=== PATIENT | female | born 1980 | race Caucasian/White ===

== ENCOUNTER 2019-10-01 08:45 | Observation (INO) | payer OTHER, SELFPAY ==
[2019-10-01] VITALS (11 sets, daily range): BP systolic 100–131; BP diastolic 60–94; PULSE 65–82; RESP 16–25; TEMP 36.6–37.2; O2SAT 96–100; BMI 25.7
--- NOTE | 2019-10-01 08:56 | ED.DCSUM_ITS ---
- ER Visit Summary Date of Service: 10/01/19 Chief Complaint: [Abdominal pain] History of Present Illness: The patient is a 39 F [presents to the emergency department complaint of abdominal pain started about a week ago. Patient states that she has had relatively continuous pain but was more mild until around 4 AM this morning when she states it became more severe. Patient did vomit x1. She denies any fever. Patient has had some dysuria and frequency and some urinary incontinence. Patient has history of a brain tumor with resection. She has had her appendix removed and she has had history of diverticulitis in the past. Patient currently rates her pain a 6 or 7 out of 10. She describes it as epigastric. Denies any diarrhea. She denies any blood in her stool or black tarry stools.] Physical Examination: [HEENT-PERRLA, EOMI. Cranial nerves II through XII grossly intact. TMs clear. Mucous membranes moist. No adenopathy. Cardiovascular-regular rate and rhythm without murmur or ectopy Lungs-clear to auscultation, chest wall stable without crepitus or subcu emp hysema Abdomen-normoactive bowel sounds, soft. Patient has some diffuse tenderness in the epigastric region. Some mild guarding. There is no rebound, rigidity, or perineal signs Extremities-intact ?4, normal range of motion, normal pulses, atraumatic] Test Results: [CBC with differential white count of 11.0, hemoglobin 13, hematocrit 39, platelets 247. Chemistries unremarkable. Total bilirubin was 2.0 and alk phos was 400, ALT 706, AST 380, lipase was 4 679. Ultrasound of the gallbladder showed Pennie lithiasis with a dilated common bile duct 19 mm without sonographic evidence of cholecystitis.] Emergency Department Course and Treatment: [Patient had an IV line established and she was given morphine and Zofran for pain. Patient will be discussed with general surgeon on-call Dr. Butler. Patient will be evaluated by surgeon. ] Treatment Plan: [Admit] Disposition: [Admit] Impression: [Abdominal pain Cholelithiasis with suspicion for choledocholithiasis Gallstone pancreatitis] This note was generated with [employer] software. It may contain incorrect words, spelling, and punctuation that were not noted in review of the chart prior to signing ED Disposition - Plan for ED Patient: Referrals: Care Physician,Lisa Primary [NON-STAFF] -
[2019-10-01 09:43] LABS: ALB/GLOB Ratio 0.7 RATIO (0.9-2.4); AST(SGOT) 380 U/L (15-37); Alanine Aminotransfer ALT/SGPT 706 U/L (13-56); Albumin, Serum 3.7 g/dL (3.2-5.0); Alkaline Phosphatase 400 U/L (45-117); Anion Gap 7 (5-15); BUN 12 mg/dL (7-18); BUN/Creat Ratio 11.4 RATIO (10-20); Calcium,Total 9.5 mg/dL (8.5-10.1); Chloride 101 mmol/L (98-107); Creatinine, Serum 1.05 mg/dL (0.55-1.02); EST Glomerular Filtration Rate 61 mL/min (>60); Est Glom Filt Rate - Afr Amer 74 mL/min (>60); Estimated Creatinine Clearance 60.89 ml/min; Globulin 5.2 g/dL (2.2-4.2); Glucose 128 mg/dL (74-106); Lipase 4679 U/L (73-393); Potassium 4.3 mmol/L (3.5-5.1); Protein, Total 8.9 g/dL (6.4-8.2); Sodium Level 134 mmol/L (136-145)
--- NOTE | 2019-10-01 09:45 | US_ITS ---
STUDY: ABDOMINAL ULTRASOUND - RIGHT UPPER QUADRANT REASON FOR VISIT: Female, 39 years old ABD PAIN TECHNIQUE: Ultrasound evaluation of the right upper quadrant was performed with real-time and static ruelas-scale imaging. TECHNICAL QUALITY: Limited. Examination limited by bowel gas. COMPARISON: None. FINDINGS: Liver: The liver measures 17.7 cm. There is increased echogenicity consistent with fatty infiltration. The bile ducts are within normal limits. There is hepatic color flow. The direction of portal flow is hepatopetal. There is no demonstrated mass lesion. Gallbladder: Multiple echogenic shadowing foci are seen within the gallbladder lumen. The gallbladder wall measures 2.6 mm. There is a negative sonographic Blanchard''s sign. There is no pericholecystic fluid. There are no gallstones. Common Bile Duct (C.B.D.): The common bile duct measures 19 mm. Pancreas: Limited evaluation of the pancreatic tail without gross abnormality. Remaining pancreatic anatomic segments demonstrate unremarkable morphology and echotexture. There is normal echogenicity of the pancreas. There is no demonstrated pancreatic mass or cyst. Right Kidney: There is a 1.0 cm maximum dimension anechoic focus involving the superior pole. There is a 1.6 cm echogenic, shadowing finding within the mid pole. The right kidney measures 13.3 x 3.8 x 4.4 cm. Normal renal cortex. The right cortex measures 1.3 cm. There is no right hydronephrosis. US/Abdomen Limited IMPRESSION: Cholelithiasis without sonographic evidence of cholecystitis. Technically limited evaluation with limited evaluation of the pancreatic tail. Right renal superior pole cyst and right renal midpole calculi. Distention of the common bile duct without sonographically evident etiology. Diffuse increased hepatic echogenicity without focal mass or cyst. This is a nonspecific finding, however most often due to fatty infiltration. Electronically Signed: Bo Bruner MD at 11:32 EST , Service support ,
[2019-10-01] MEDS: Ondansetron 4 MG/2 ML Vial IV (10:41)
[2019-10-01] MEDS: Morphine 4 MG/ML Syringe IV (10:41)
[2019-10-01] MEDS: 0.9% Normal Saline 1,000 ML 1000 ML IV (10:41)
[2019-10-01 11:08] LABS: Absolute Neutrophil Count 9.2 X10^3/uL (2.0-7.7); Basophil# 0.02 X10^3/uL; Basophil% 0.2 % (0-1); Eosinophil# 0.02 X10^3/uL; Eosinophils% 0.2 % (0-5); Hematocrit 39.5 % (37-47); Lymphocyte % 12.7 % (19-41); Mean Corp Hgb Conc 32.9 g/dL (32-36); Mean Corpuscular Hgb 28.3 pg (27.0-32.0); Mean Corpuscular Volume 85.9 fL (81-99); Mean Platelet Vol. 10.5 fl (6.2-12.0); Monocyte# 0.31 X10^3/uL; Monocyte% 2.8 % (0-10); NRBC Flagged by Analyzer 0 % (0-5); Neutrophil # 9.23 X10^3/uL (2.7-7.7); Neutrophil % 83.7 % (47-70); Platelet Count 247 K/mm3 (150-450); RBC Distribution Width CV 14.5 % (11.6-14.6); RBC Distribution Width SD 45.1 fl (35.1-43.9)
[2019-10-01 12:05] LABS: Mucous, Urine 0 SEEN /hpf (<or=2+); Red Blood Cells-Urine 0 SEEN /hpf (0-5); Squamous Epithelial Cells - UA 0 SEEN /hpf (5-10)
[2019-10-01 12:08] LABS: Color, Urine Yellow (Yellow); Glucose, Dipstick Normal (Normal); Ketone-Dipstick Negative (Negative); Leukocyte Esterase-Dipstick 500 /ul (Negative); Nitrite-Dipstick Negative (Negative); Occult Blood-Urine Negative /ul (Negative); Protein-Dipstick Negative (Negative); Urine Bilirubin Dipstick Negative (Negative); Urine Clarity Clear (Clear); Urine Urobilinogen Normal (Normal)
[2019-10-01 12:15] LABS: Bacteria 1+ /hpf (None Seen); White Blood Cells 0-5 SEEN /hpf (0-5)
--- NOTE | 2019-10-01 14:06 | RAD_ITS ---
Procedure: Three, intraprocedural, ERCP fluoroscopic spot images. Comment: Fluoroscopy services provided for clinical procedure. Please refer to operating physician''s procedure note for additional detail. FINDINGS: Opacified intrahepatic bile ducts appear unremarkable. Specifically, no filling defect to suggest calculi. No evidence of intrahepatic biliary ductal beading or stenosis. Moderate distention of opacified extrahepatic bile duct without definite filling defect. RAD/ERCP Biliary/Pancreas IMPRESSION: Fluoroscopy services provided for clinical procedure. Please refer to operating physician''s procedure note for additional detail. Unremarkable appearing intrahepatic bile ducts. Moderate dolichoectasia of the opacified extrahepatic bile ducts, however, no definite filling defect identified. Fluoroscopy time not provided. Electronically Signed: Bo Bruner MD at 9:37 EST , Service support ,
[2019-10-01 15:11] LABS: Internal QC Validated? YES +Cl - CLEAR BKGD; Pregnancy, Urine Negative Negative
--- NOTE | 2019-10-01 15:22 | PCM.HP.STD ---
Problem List (1) Gallstone pancreatitis Status: Acute (2) Obstructive jaundice Status: Acute History of Present Illness Date of Admission: 10/01/19 Chief Complaint: Epigastric pain The patient is a 39 year old F who reports that she has been having off-and-on pain for a while now. She says she has been fighting it. She says the pain got worse since Tuesday. She says she did not have any nausea or vomiting but she is having severe epigastric pain. Past Medical History Medical History: Medical History (Last Reviewed 10/04/17 @ 14:02 by Arina Fox) History of hemorrhoids Z87.19 Thyroid disease E07.9 Allergies No Known Allergies Allergy (Verified 10/01/19 08:45) Home Medications: Ambulatory Orders Medication Instructions Recorded NK 10/04/17 Smoking Status: Never smoker Review of Systems Constitutional: Denies: Anorexia, Fever HEENT: Denies: Difficulty Hearing, Difficulty Swallowing Cardiovascular: Denies: Chest Pain Respiratory: Denies: Cough, Shortness of Breath Gastrointestinal: Reports: Abdominal Pain - Epigastric pain Genitourinary: Denies: Dysuria Musculoskeletal: Denies: Joint Tenderness Skin: Denies: Dryness Psychiatric: Denies: Anxiety VTE Information - Inpt Only VTE Present on Admission: No VTE Mechan Device Prophylaxis: SCD's Patient Problems: Active and Suspected Problems (Last Reviewed 10/04/17 @ 14:02 by Arnia Fox) Gallstone pancreatitis (Acute) Obstructive jaundice (Acute) - Physical Exam Vitals/I&O's: Vital Signs Temp Pulse Resp BP Pulse Ox 97.8 F 65 16 100/69 97 10/01/19 13:53 10/01/19 13:53 10/01/19 13:53 10/01/19 13:53 10/01/19 13:53 Oxygen Delivery Method Room Air Weight: 150 lb Body Mass Index (BMI) 25.7 Intake and Output for Last 24 Hours 09/29/19 09/30/19 10/01/19 23:59 23:59 23:59 Intake Total 1000 / 1000 Balance 1000 / 1000 General: Alert, Oriented x3 Lungs: Normal air movement Cardiovascular: Regular rate, Regular Rhythm Abdomen: Soft, Non-Distended, Tender - Tender in the epigastric Extremities: No clubbing Musculoskeletal: No Muscle Wasting Neurological: Facial Droop - Patient is a facial droop on the right side Psych/Mental Status: Normal Affect Laboratory Results 10/01/19 09:00: WBC Cancelled, Corrected WBC Cancelled, RBC Cancelled, Hgb Cancelled, Hct Cancelled, MCV Cancelled, MCH Cancelled, MCHC Cancelled, RDW Std Deviation Cancelled, RDW Coeff of Melody Cancelled, Plt Count Cancelled, MPV Cancelled, Immature Gran % (Auto) Cancelled, Neut % (Auto) Cancelled, Lymph % (Auto) Cancelled, [place] % (Auto) Cancelled, Eos % (Auto) Cancelled, Baso % (Auto) Cancelled, Absolute Neuts (auto) Cancelled, Absolute Lymphs (auto) Cancelled, Total Counted Cancelled, Neutrophils % (Manual) Cancelled, Band Neutrophils % Cancelled, Lymphocytes % (Manual) Cancelled, Monocytes % (Manual) Cancelled, Eosinophils % (Manual) Cancelled, Basophils % (Manual) Cancelled, Metamyelocytes % Cancelled, Myelocytes % Cancelled, Promyelocytes % Cancelled, Blast Cells % Cancelled, Plasma Cell % (Manual) Cancelled, Other Cells % Cancelled, Nucleated RBC % Cancelled, Nucleated RBCs/100 WBC Cancelled, Differential Comment Cancelled, Diff Path Review Cancelled, Hypersegmented Neuts Cancelled, Atypical Lymphocytes Cancelled, Reactive Lymphocytes Cancelled, Smudge Cells Cancelled, Toxic Granulation Cancelled, Toxic Vacuolation Cancelled, Dohle Bodies Cancelled, Jaswinder Rods Cancelled, Platelet Estimate Cancelled, Plt Morphology Comment Cancelled, RBC Morphology Cancelled, Polychromasia Cancelled, Hypochromasia Cancelled, Poikilocytosis Cancelled, Basophilic Stippling Cancelled, Anisocytosis Cancelled, Microcytosis Cancelled, Macrocytosis Cancelled, Spherocytes Cancelled, Sickle Cells Cancelled, Target Cells Cancelled, Tear Drop Cells Cancelled, Ovalocytes Cancelled, Stomatocytes Cancelled, [place] Bodies Cancelled, [place] Cells Cancelled, Bite Cells Cancelled, Crenated Cell Cancelled, Acanthocytes (Spur) Cancelled, Rouleaux Cancelled, Schistocytes Cancelled 10/01/19 09:00: Sodium 134 L, Potassium 4.3, Chloride 101, Carbon Dioxide 26.0, Anion Gap 7, BUN 12, Creatinine 1.05 H, Estim Creat Clear Calc 60.89, Est GFR (MDRD) Af Amer 74, Est GFR (MDRD) Non-Af 61, BUN/Creatinine Ratio 11.4, Glucose 128 H, Calcium 9.5, Total Bilirubin 2.00 H, AST 380 H, ALT 706 H, Alkaline Phosphatase 400 H, Total Protein 8.9 H, Albumin 3.7, Globulin 5.2 H, Albumin/Globulin Ratio 0.7 L, Lipase 4679 H 10/01/19 10:50: WBC 11.0, RBC 4.60, Hgb 13.0, Hct 39.5, MCV 85.9, MCH 28.3, MCHC 32.9, RDW Std Deviation 45.1 H, RDW Coeff of Melody 14.5, Plt Count 247, MPV 10.5, Immature Gran % (Auto) 0.400, Neut % (Auto) 83.7 H, Lymph % (Auto) 12.7 L, [place] % (Auto) 2.8, Eos % (Auto) 0.2, Baso % (Auto) 0.2, Absolute Neuts (auto) 9.2 H, Absolute Lymphs (auto) 1.40, Nucleated RBC % 0 10/01/19 12:00: Urine Color Yellow, Urine Clarity Clear, Urine pH 8.0, Ur Specific [place] 1.010, Urine Protein Negative, Urine Glucose (UA) Normal, Urine Ketones Negative, Urine Occult Blood Negative, Urine Nitrite Negative, Urine Bilirubin Negative, Urine Urobilinogen Normal, Ur Leukocyte Esterase 500 H, Urine RBC 0 SEEN, Urine WBC 0-5 SEEN, Ur Squamous Epith Cells 0 SEEN, Urine Bacteria 1+, Urine Mucus 0 SEEN 10/01/19 12:00: Urine Test Negative Clinical Impression(s) from Imaging Studies Abdomen Ultrasound 10/01/19 09:45 IMPRESSION: Cholelithiasis without sonographic evidence of cholecystitis. Technically limited evaluation with limited evaluation of the pancreatic tail. Right renal superior pole cyst and right renal midpole calculi. Distention of the common bile duct without sonographically evident etiology. Diffuse increased hepatic echogenicity without focal mass or cyst. This is a nonspecific finding, however most often due to fatty infiltration. Electronically Signed: Bo Bruner MD at 11:32 EST , Service support , Assessment/Plan All Active Problems (Last Reviewed 10/04/17 @ 14:02 by Arina Fox) Gallstone pancreatitis (Acute) Obstructive jaundice (Acute) Diverticulitis (Acute) 39-year-old female with gallstone pancreatitis and likely obstructive jaundice 1. The patient has an elevated white count as well as epigastric pain. Her lipase is elevated as are her liver enzymes. Ultrasound showed no thickening of the gallbladder wall but multiple gallstones. She also has a dilated common bile duct. The patient likely has obstructive jaundice and gallstone pancreatitis. I recommend ERCP. 2. I discussed ERCP in detail with the patient and her . I am unsure if they will proceed with laparoscopic cholecystectomy subsequently. I did offer them stent placement. They would like to try flushing the stones using diet and herbal supplements. I strongly recommended laparoscopic cholecystectomy as I believe that she will get more stone stuck in her duct and possibly get pancreatitis again but she would like to proceed with that instead of laparoscopic cholecystectomy likely. I will perform ERCP today and possibly place a stent to prevent further obstruction. 3. I discussed ERCP in detail the patient including the risks of bleeding, infection, perforation of the bile duct or bowel, worsening of pancreatitis. The patient understands and is willing to proceed with surgery. Lucian Butler MD Pager: [facility] [address] [place] [address], [address] [place] [address] Office:
--- NOTE | 2019-10-01 19:18 | OP.ERCP_ITS ---
Patient Name: Arelis Benedict Procedure Date: 10/01/2019 4:37 PM Date of : 1980 Age: 39 Procedure: ERCP Indications: Acute pancreatitis, Acute pancreatitis suspected due to gallstone Providers: Lucian uBtler MD Medicines: Monitored Anesthesia Care Patient Profile: This is a 39 year old female. Refer to note in patient chart for documentation of history and physical. Complications: No immediate complications. Estimated blood loss: Minimal. Procedure: Pre-Anesthesia Assessment: - Prior to the procedure, a History and Physical was performed, and patient medications and allergies were reviewed. The patient's tolerance of previous anesthesia was also reviewed. The risks and benefits of the procedure and the sedation options and risks were discussed with the patient. All questions were answered, and informed consent was obtained. Prior Anticoagulants: The patient has taken no previous anticoagulant or antiplatelet agents. After reviewing the risks and benefits, the patient was deemed in satisfactory condition to undergo the procedure. After obtaining informed consent, the scope was passed under direct vision. Throughout the procedure, the patient's blood pressure, pulse, and oxygen saturations were monitored continuously. The duodenoscope was introduced through the mouth, and advanced to the duodenum and used to cannulate the bile duct. The ERCP was accomplished without difficulty. The patient tolerated the procedure well. Scope In: 5:02:08 PM Scope Out: 5:18:04 PM Total Procedure Duration Time 0 hours 15 minutes 56 seconds Findings: A 0.035 inch x 260 cm straight Dreamwire was passed into the biliary tree. The sphincterotome was passed over the guidewire and the bile duct was then deeply cannulated. Contrast was injected. There was extravasation. The guidewire was withdrawn and the bile duct was recannulated and guidewire sucessfully placed into common duct and catheter replaced into the common duct. There appeared to be a small amount of extravasation initially from the guidewire going external to the common duct. Biliary sphincterotomy was made with a monofilament sphincterotome using ERBE electrocautery. There was no post-sphincterotomy bleeding. To discover objects, the biliary tree was swept with a 15 mm balloon starting at the bifurcation. Sludge was swept from the duct. One 10 Fr by 7 cm plastic stent with a single external flap and a single internal flap was placed into the common bile duct. Bile flowed through the stent. The stent was in good position. Impression: - A biliary sphincterotomy was performed. - The biliary tree was swept and sludge was found. - One plastic stent was placed into the common bile duct. Recommendation: - [facility] patient to [facility] for [facility] care. Procedure Code(s): --- Professional --- 65852, Endoscopic retrograde cholangiopancreatography (ERCP); with placement of endoscopic stent into biliary or pancreatic duct, including pre- and post-dilation and guide wire passage, when performed, including sphincterotomy, when performed, each stent Diagnosis Code(s): --- Professional --- K85.90, Acute pancreatitis without necrosis or infection, unspecified CPT copyright 2017 [place] [employer]. All rights reserved. The codes documented in this report are preliminary and upon assistant research scientist review may be revised to meet current compliance requirements. Lucian Butler MD 10/01/2019 7:18:18 PM This report has been signed electronically. Number of Addenda: 0 Note Initiated On: 10/01/2019 4:37 PM
[2019-10-01] MEDS: 0.9% Normal Saline 1,000 ML 125 ML IV (20:19)
[2019-10-01] MEDS: Piperacil/Tazobactam 3.375 GM/50 ML ML IV (22:16)
--- NOTE | 2019-10-01 23:03 | NURSING ---
PT AND STATE THAT THEY HAVE DECIDED TO WAIT AND SCHEDULE HER SURGERY OUTPATIENT SO THAT HER FAMILY CAN BE MORE PREPARED FOR HER ABSENCE SHE HAS 12 CHILDREN. THEY REPORT THAT THE DOCTOR INDICATED IT WAS UP TO THEM AND WILL SEE PT IN THE AM.
[2019-10-02 03:17] VITALS: BP 100/62; PULSE 62; RESP 16; TEMP 37.1; O2SAT 97
[2019-10-02] MEDS: 0.9% Normal Saline 1,000 ML 125 ML IV (04:06)
[2019-10-02] MEDS: Piperacil/Tazobactam 3.375 GM/50 ML ML IV (05:12)
[2019-10-02 05:54] LABS: Absolute Lymphocyte Count 1.92 X10^3/uL (0.83-4.51); Absolute Neutrophil Count 9.2 X10^3/uL (2.0-7.7); Basophil# 0.01 X10^3/uL; Basophil% 0.1 % (0-1); Hematocrit 35.4 % (37-47); Lymphocyte # 1.92 X10^3/ul (4.0); Lymphocyte % 16.6 % (19-41); Mean Corp Hgb Conc 31.1 g/dL (32-36); Mean Corpuscular Hgb 28.2 pg (27.0-32.0); Mean Corpuscular Volume 90.8 fL (81-99); Mean Platelet Vol. 10.9 fl (6.2-12.0); Monocyte# 0.37 X10^3/uL; Monocyte% 3.2 % (0-10); NRBC Flagged by Analyzer 0 % (0-5); Neutrophil % 79.7 % (47-70); POSITIVE MORPHOLOGY YES; Platelet Count 202 K/mm3 (150-450); RBC Distribution Width CV 15.1 % (11.6-14.6); RBC Distribution Width SD 49.9 fl (35.1-43.9); White Blood Count 11.6 K/mm3 (4.4-11.0)
[2019-10-02] MEDS: 0.9% Saline Lock 10 ML Syringe IV (06:01)
[2019-10-02 06:16] LABS: Differential Indicated SCAN CRITERIA MET
[2019-10-02 06:36] LABS: ALB/GLOB Ratio 0.7 RATIO (0.9-2.4); AST(SGOT) 140 U/L (15-37); Alanine Aminotransfer ALT/SGPT 448 U/L (13-56); Albumin, Serum 2.9 g/dL (3.2-5.0); Alkaline Phosphatase 279 U/L (45-117); Anion Gap 8 (5-15); BUN 12 mg/dL (7-18); BUN/Creat Ratio 11.3 RATIO (10-20); Calcium,Total 7.6 mg/dL (8.5-10.1); Chloride 112 mmol/L (98-107); Creatinine, Serum 1.06 mg/dL (0.55-1.02); EST Glomerular Filtration Rate 61 mL/min (>60); Est Glom Filt Rate - Afr Amer 73 mL/min (>60); Estimated Creatinine Clearance 60.31 ml/min; Globulin 3.9 g/dL (2.2-4.2); Glucose 81 mg/dL (74-106); Potassium 3.8 mmol/L (3.5-5.1); Protein, Total 6.8 g/dL (6.4-8.2); Sodium Level 142 mmol/L (136-145)
[2019-10-02 07:05] LABS: Lipase 413 U/L (73-393)
[2019-10-02 07:27] LABS: Differential Comment SCANNED
--- NOTE | 2019-10-02 07:40 | PN.SURG_ITS ---
Patient Problems: Active and Suspected Problems (Last Reviewed 10/04/17 @ 14:02 by Arina Fox) Gallstone pancreatitis (Acute) Obstructive jaundice (Acute) Subjective: Patient is having no abdominal pain today. - Physical Exam Vitals/I&O's: Vital Signs Temp Pulse Resp BP Pulse Ox 98.7 F 62 16 100/62 97 10/02/19 03:17 10/02/19 03:17 10/02/19 03:17 10/02/19 03:17 10/02/19 03:17 Oxygen Delivery Method Room Air Weight: 150 lb Body Mass Index (BMI) 25.7 Intake and Output for Last 24 Hours 09/30/19 10/01/19 10/02/19 23:59 23:59 23:59 Intake Total 1650 / 1650 1546.09 / 1546.09 Output Total 300 / 300 500 / 500 Balance 1350 / 1350 1046.09 / 1046.09 General: Alert, Oriented x3 Neck: No JVD Lungs: Normal air movement Cardiovascular: Regular rate, Regular Rhythm Abdomen: Soft, Non Tender Laboratory Results 10/01/19 09:00: WBC Cancelled, Corrected WBC Cancelled, RBC Cancelled, Hgb Cancelled, Hct Cancelled, MCV Cancelled, MCH Cancelled, MCHC Cancelled, RDW Std Deviation Cancelled, RDW Coeff of Melody Cancelled, Plt Count Cancelled, MPV Cancelled, Immature Gran % (Auto) Cancelled, Neut % (Auto) Cancelled, Lymph % ( Auto) Cancelled, [place] % (Auto) Cancelled, Eos % (Auto) Cancelled, Baso % (Auto) Cancelled, Absolute Neuts (auto) Cancelled, Absolute Lymphs (auto) Cancelled, Total Counted Cancelled, Neutrophils % (Manual) Cancelled, Band Neutrophils % Cancelled, Lymphocytes % (Manual) Cancelled, Monocytes % (Manual) Cancelled, Eosinophils % (Manual) Cancelled, Basophils % (Manual) Cancelled, Metamyelocytes % Cancelled, Myelocytes % Cancelled, Promyelocytes % Cancelled, Blast Cells % Cancelled, Plasma Cell % (Manual) Cancelled, Other Cells % Cancelled, Nucleated RBC % Cancelled, Nucleated RBCs/100 WBC Cancelled, Differential Comment Cancelled, Diff Path Review Cancelled, Hypersegmented Neuts Cancelled, Atypical Lymphocytes Cancelled, Reactive Lymphocytes Cancelled, Smudge Cells Cancelled, Toxic Granulation Cancelled, Toxic Vacuolation Cancelled, Dohle Bodies Cancelled, Jaswinder Rods Cancelled, Platelet Estimate Cancelled, Plt Morphology Comment Cancelled, RBC Morphology Cancelled, Polychromasia Cancelled, Hypochromasia Cancelled, Poikilocytosis Cancelled, Basophilic Stippling Cancelled, Anisocytosis Cancelled, Microcytosis Cancelled, Macrocytosis Cancelled, Spherocytes Cancelled, Sickle Cells Cancelled, Target Cells Cancelled, Tear Drop Cells Cancelled, Ovalocytes Cancelled, Stomatocytes Cancelled, [place] Bodies Cancelled, [place] Cells Cancelled, Bite Cells Cancelled, Crenated Cell Cancelled, Acanthocytes (Spur) Cancelled, Rouleaux Cancelled, Schistocytes Cancelled 10/01/19 09:00: Sodium 134 L, Potassium 4.3, Chloride 101, Carbon Dioxide 26.0, Anion Gap 7, BUN 12, Creatinine 1.05 H, Estim Creat Clear Calc 60.89, Est GFR (MDRD) Af Amer 74, Est GFR (MDRD) Non-Af 61, BUN/Creatinine Ratio 11.4, Glucose 128 H, Calcium 9.5, Total Bilirubin 2.00 H, AST 380 H, ALT 706 H, Alkaline Phosphatase 400 H, Total Protein 8.9 H, Albumin 3.7, Globulin 5.2 H, Albumin/Globulin Ratio 0.7 L, Lipase 4679 H 10/01/19 10:50: WBC 11.0, RBC 4.60, Hgb 13.0, Hct 39.5, MCV 85.9, MCH 28.3, MCHC 32.9, RDW Std Deviation 45.1 H, RDW Coeff of Melody 14.5, Plt Count 247, MPV 10.5, Immature Gran % (Auto) 0.400, Neut % (Auto) 83.7 H, Lymph % (Auto) 12.7 L, [place] % (Auto) 2.8, Eos % (Auto) 0.2, Baso % (Auto) 0.2, Absolute Neuts (auto) 9.2 H, Absolute Lymphs (auto) 1.40, Nucleated RBC % 0 10/01/19 12:00: Urine Color Yellow, Urine Clarity Clear, Urine pH 8.0, Ur Specific [place] 1.010, Urine Protein Negative, Urine Glucose (UA) Normal, Urine Ketones Negative, Urine Occult Blood Negative, Urine Nitrite Negative, Urine Bilirubin Negative, Urine Urobilinogen Normal, Ur Leukocyte Esterase 500 H, Urine RBC 0 SEEN, Urine WBC 0-5 SEEN, Ur Squamous Epith Cells 0 SEEN, Urine Bacteria 1+, Urine Mucus 0 SEEN 10/01/19 12:00: Urine Test Negative 10/02/19 05:20: WBC 11.6 H, RBC 3.90 L, Hgb 11.0 L, Hct 35.4 L, MCV 90.8 D, MCH 28.2, MCHC 31.1 L, RDW Std Deviation 49.9 H, RDW Coeff of [place]ody 15.1 H, Plt Count 202, MPV 10.9, Immature Gran % (Auto) 0.400, Neut % (Auto) 79.7 H, Lymph % (Auto) 16.6 L, [place] % (Auto) 3.2, Eos % (Auto) 0.0, Baso % (Auto) 0.1, Absolute Neuts (auto) 9.2 H, Absolute Lymphs (auto) 1.92, Nucleated RBC % 0, Differential Comment SCANNED 10/02/19 05:20: Sodium 142, Potassium 3.8, Chloride 112 H, Carbon Dioxide 22.0, Anion Gap 8, BUN 12, Creatinine 1.06 H, Estim Creat Clear Calc 60.31, Est GFR (MDRD) Af Amer 73, Est GFR (MDRD) Non-Af 61, BUN/Creatinine Ratio 11.3, Glucose 81, Calcium 7.6 L, Total Bilirubin 0.70, AST 140 H, ALT 448 H, Alkaline Phosphatase 279 H, Total Protein 6.8, Albumin 2.9 L, Globulin 3.9, Albumin/Globulin Ratio 0.7 L 10/02/19 05:20: Lipase 413 H Current Medications Acetaminophen (Tylenol) 650 mg PO Q6H PRN PRN PRN Reason: Pain Score 1-10/10 Piperacillin Sod/Tazobactam Sod (Zosyn) 3.375 gm in 50 mls @ 12.5 mls/hr IV Q8 AIDA Last Admin: 10/02/19 05:12 Dose: 12.5 mls/hr Documented by: Sodium Chloride () 250 mls @ 15 mls/hr IV .[id number] PRN PRN Reason: Saline Flush Last Infusion: 10/02/19 05:12 Dose: 0 mls/hr Documented by: Sodium Chloride () 250 mls @ 15 mls/hr IV .[id number] PRN PRN Reason: Additional IVPB Infusion Morphine Sulfate () 2 - 4 mg IV Q2H PRN PRN PRN Reason: Pain Score 6-10/10 Morphine Sulfate () 2 - 4 mg IV Q2H PRN PRN Ondansetron HCl (Zofran) 4 mg IV Q6H PRN PRN PRN Reason: NAUSEA/VOMITING Sodium Chloride () 10 - 40 ml IV UD PRN PRN Reason: SALINE FLUSH Last Admin: 10/02/19 06:01 Dose: 20 ml Documented by: Medical Necessity - Tobacco Use Smoking Status: Never smoker Assessment/Plan All Active Problems (Last Reviewed 10/04/17 @ 14:02 by Arina Fox) Gallstone pancreatitis (Acute) Obstructive jaundice (Acute) Diverticulitis (Acute) 39-year-old female status post ERCP for gallstone pancreatitis and obstruction 1. Patient had ERCP yesterday and the duct was cleared of sludge and debris. The patient also had inadvertent extravasation of contrast in the common bile duct. A stent was placed to resolve this. Today she is having no abdominal pain and her white count is the same as it was yesterday. I will try a diet. She wants to perform her laparoscopic cholecystectomy electively. Given the fact that she has a stent in place this is appropriate. I will have her follow- up with me and plan elective laparoscopic cholecystectomy and plan to remove biliary stent in 6 to 8 weeks with a outpatient ERCP. Lucian Butler MD Pager: [facility] [address] [place] [address], [address] [place] [address] Office:
[2019-10-02 08:10] VITALS: BP 103/67; PULSE 58; RESP 18; TEMP 36.7; O2SAT 97
--- NOTE | 2019-10-02 10:41 | DCINST_ITS ---
- Discharge Diagnoses Current Active Problems: Current Active and Chronic Problems (Last Reviewed 10/04/17 @ 14:02 by Arnia Fox) Gallstone pancreatitis (Acute) Obstructive jaundice (Acute) You will use the following diet at home:: Regular Your food should be the consistency of: Regular Discharge Activity: No Restrictions, May Shower Call your doctor if your incision/area has: Increased Pain/ Swelling Call your doctor if you observe: Fever of 101 or Higher Allergies/Adverse Reactions: Allergies No Known Allergies Allergy (Verified 10/01/19 08:45) Medications to take at Discharge NK 10/04/17 Primary Care Physician: Care Physician,No Primary [NON-STAFF] - Test Results: Test results from this visit will be discussed in further detail at your follow- up appointment, if applicable. Please Follow Up With: Lucian Butler MD When: Please call to schedule 2 week follow up appointment. [phone]
== END 2019-10-02 12:00 | disposition home or self-care (01) ==
LOC: ED 13:12 → SDC 13:41 → AC 13:42 → MS3 18:47 → MS2 10-02 07:03 → MS3 10-02 09:48 → MS2 10-02 09:50
PROVIDERS: Admitting Provider Surgery; Emergency Provider Emergency Medicine; Family Provider Nurse Practitioner Family; PCP Nurse Practitioner Family; Visit Provider Surgery
PROC: (CPT 43260; principal; 2019-10-01 14:10)
DX: K85.10 Biliary acute pancreatitis without necrosis or infection (principal); K80.21 Calculus of gallbladder without cholecystitis with obstruction; Z87.19 Personal history of other diseases of the digestive system
CPT/HCPCS: 43274; 36415; 74330; 76000; 76705; 80053; 81001; 81025; 83690; 85025; 96361; 96365; 96366; 96375; 99218; 99251; 99282; J7030; J7040; J7050; A4216; G0378; G0463; J1610; J2405